=== PATIENT | female | born 1970 | race Caucasian/White ===

== ENCOUNTER 2022-04-06 10:20 | Emergency (ER) | payer OTHER, SELFPAY ==
[2022-04-06 10:41] VITALS: BP 144/78; PULSE 117; RESP 18; TEMP 36.9; O2SAT 99
--- NOTE | 2022-04-06 11:18 | ED.GENADULT ---
HPI - General Adult General Chief complaint: Upper Respiratory Infection Stated complaint: Throat Irritation,Fatigue,Headache Source: patient Mode of arrival: ambulatory Limitations: no limitations History of Present Illness HPI narrative: Patient presents for evaluation of sick symptoms since yesterday. Symptoms include hot flashes, intermittent frontal headache, scratchy throat and fatigue. No chills, nausea, vomiting, diarrhea, abdominal pain, chest pain, shortness of breath or cough. No recent sick contacts to her knowledge. She received both doses of her COVID vaccination. She is taking tylenol for her symptoms. No additional complaints or concerns. Related Data Home Medications Medication Instructions Recorded Confirmed rosuvastatin 5 mg PO DAILY 04/06/22 04/06/22 Allergies Allergy/AdvReac Type Severity Reaction Status Date / Time No Known Allergies Allergy Verified 04/06/22 11:00 Review of Systems Review of Systems: CONSTITUTIONAL: Reports hot flashes and fatigue EYES: Denies visual changes, redness, or discharge. ENT: Reports scratchy throat. Denies rhinorrhea, congestion,or otalgia. CARDIOVASCULAR: Denies chest pain, palpitations, or edema. RESPIRATORY: Denies cough or dyspnea. GASTROINTESTINAL: Denies abdominal pain, nausea, vomiting, or diarrhea. GENITOURINARY: Denies dysuria or hematuria. SKIN: Denies rash or itching. MUSCULOSKELETAL: Denies back pain, joint pain, or myalgia. NEUROLOGIC: Reports headache. Denies numbness, dizziness, or weakness. PSYCHIATRIC: Denies anxiety or depression. [facility] Past Medical History Medical History (Updated 04/06/22 @ 11:56 by GONZALO Regalado, ) Hyperlipidemia Surgical History Surgical History No pertinent past surgical history Family History Family History Mother Heart disease Father Heart disease Social History Social History Smoking status: Never smoker Alcohol intake: current Alcohol use details: rare Substance use: never Living arrangements: with family Gender identity (if verbalized by the patient): Female Sexual Orientation (if Verbalized by the Patient): Straight or Heterosexual Spiritual care concerns: No Exam Narrative: GENERAL: Well-appearing, well-nourished, and in no acute distress. HEAD: Normocephalic, atraumatic. EYES: PERRLA and EOMI. ENT: Nares clear, no rhinorrhea or epistaxis. Mucous membranes moist. Posterior pharyngeal erythema without exudate. Uvula is midline.. Bilateral TMs pearly gerardo nonbulging NECK: Supple. No adenopathy or masses. No carotid bruits or JVD CHEST: Clear to auscultation. No respiratory distress. No wheezes rales or rhonchi HEART: Regular rate and rhythm. No murmur heard. Normal peripheral pulses. ABDOMEN: Soft, nontender, nondistended, normal active bowel sounds. EXTREMITIES: Normal range of motion. No edema. SKIN: Warm, dry, no rash. NEURO: No focal deficits. Alert and oriented x3. PSYCH: Normal mood and affect. Course Course Emergency Course: This is a 52-year-old female who presented with reports fo sick symptoms. Her strep and influenza were negative. Offered COVID testing, which she declined. Exam is consistent with acute viral syndrome. Will dc with ibuprofen and cepacol. We did discuss starting oral abx for sore throat vs watchful waiting until throat culture results. She would like to wait for time being. She will follow up outpatient for further evalution and treatment and return for worsening symptoms. Pt in agreement with plan of care. Level of Care: Express Care Visit Vital Signs Vital signs: Vital Signs Temperature 36.9 C 04/06/22 10:41 Pulse Rate 117 H 04/06/22 10:41 Respiratory Rate 18 04/06/22 10:41 Blood Pressure 144/78 H 04/06/22 10:41 Pulse Oximetry 99 0
== END 2022-04-06 11:57 | disposition home or self-care (01) ==
PROVIDERS: Emergency Provider Nurse Practitioner; PCP Internal Medicine
DX: B34.9 Viral infection, unspecified (principal); E78.5 Hyperlipidemia, unspecified
CPT/HCPCS: 87081; 87804; 87880; 99213; G0463